=== PATIENT | female | born 1950 | race African-American/Black ===

== ENCOUNTER 2017-04-06 16:18 | Emergency (ER) | payer OTHER ==
[~2017-04-06] VITALS: Ht 154.9 cm; Wt 94.3 kg
[~2017-04-06 16:18] MED LIST: AGGRENOX; ALBU18; AMIT25TA9; AMITRIPTYLINE; AMLO10TA2 PO; ASPIRIN; ATEN-60; CLOP75TA41; DOXY; GABA-494; HYDR-2595; LISI-285; SIMV-13; SIMV20TA90; pravastatin PO
[2017-04-06 16:42] VITALS: BP 124/79
[2017-04-06] MEDS ORDERED: KETOROLAC TROMETH 60MG/2ML VIAL IM ONE (18:15)
[2017-04-06 18:35] LABS: Basophils # (auto) 0 uL; CONDITION AutoValidated; Eosinophils # (auto) 0.2 uL; Eosinophils % (auto) 2.6 % (0.0-7.0); Hematocrit 36.8 % (36.0-46.0); Hemoglobin 12.2 g/dL (12.2-16.2); Lymphocytes # (auto) 1.3 uL; Mean Corpuscular Hemoglobin 31.5 pg (28.0-32.0); Mean Corpuscular Hgb Conc. 33.1 g/dL (32.0-36.0); Mean Corpuscular Volume 95.2 fL (80.0-100.0); Mean Platelet Volume 8.9 fL (7.4-10.4); Monocytes # (auto) 0.5 uL; Neutrophils # (auto) 5.6 uL; Neutrophils % (auto) 74.4 % (37.0-80.0); Platelet Count (auto) 284 10^3/uL (140-450); Red Cell Distribution Width 13.9 % (11.6-16.0); White Blood Cell 7.5 10^3/uL (4.4-10.8)
[2017-04-06 18:42] LABS: INR 0.95 (0.9-1.15); Prothrombin Time 10.4 sec (9.37-12.3)
[2017-04-06 18:48] LABS: Albumin 3.6 g/dL (3.4-5.0); Anion Gap 11 (5-15); BUN/Creatinine Ratio 18.2; Blood Urea Nitrogen 29 mg/dL (7-18); Calcium 8.8 mg/dL (8.5-10.1); Carbon Dioxide 19 mmol/L (21-32); Chloride 116 mmol/L (98-107); GFR African American 42 mL/min; GFR Non-African American 35 mL/min; Glucose 96 mg/dL (74-106); Magnesium 1.9 mg/dL (1.6-2.6); Potassium 3.7 mmol/L (3.5-5.1); Sodium 146 mmol/L (136-145)
[2017-04-06 18:50] LABS: Alkaline Phosphatase 68 U/L (45-117); Aspartate Aminotransferase 18 U/L (15-37); Bilirubin, Total 0.3 mg/dL (0.2-1.0); Total Protein 7.1 g/dL (6.4-8.2)
== END 2017-04-06 19:11 | disposition home or self-care (01) ==
LOC: EDBD 16:18 → ER 16:18
DX: S16.1XXA Strain of muscle, fascia and tendon at neck level, initial encounter (principal); S70.01XA Contusion of right hip, initial encounter; J45.909 Unspecified asthma, uncomplicated; E78.5 Hyperlipidemia, unspecified; I10 Essential (primary) hypertension; Z86.73 Personal history of transient ischemic attack (TIA), and cerebral infarction without residual deficits; Z90.49 Acquired absence of other specified parts of digestive tract; Z79.899 Other long term (current) drug therapy; Z88.6 Allergy status to analgesic agent; Z87.891 Personal history of nicotine dependence; W19.XXXA Unspecified fall, initial encounter; Y93.89 Activity, other specified; Y99.8 Other external cause status; Y92.89 Other specified places as the place of occurrence of the external cause
CPT/HCPCS: 36415; 70450; 71010; 72125; 73502; 80053; 83735; 84484; 85025; 85610; 93005; 96372; 99285; J1885

== ENCOUNTER 2017-05-11 12:05 | Observation (INO) | payer OTHER ==
[~2017-05-11] VITALS: Ht 157.5 cm; Wt 88.0 kg
[2017-05-11] MEDS ORDERED: SODIUM CHLORIDE 0.9% 1,000 ML IVB ONE (12:22)
[2017-05-11] MEDS ORDERED: ALUM & MAG HYDROX-SIMETH LIQ(MAALOX) 30 ML PO ONE (12:30)
[2017-05-11] MEDS ORDERED: DONNATAL 5ml ORAL Elix (BELLADONNA ALK-PHENOBARB) PO ONE (12:30)
[2017-05-11] MEDS ORDERED: ONDANSETRON HCL 4 MG/2 ML VIAL IV ONE (12:30)
[2017-05-11] MEDS ORDERED: LIDOCAINE VISCOUS 2% 15ML UD PO ONE (12:30)
[2017-05-11] MEDS ORDERED: PANTOPRAZOLE SODIUM 40 MG/10 ML VIAL IV ONE (12:30)
[2017-05-11] MEDS ORDERED: MORPHINE SULFATE 4 MG/ML SYRG IV ONE (12:30)
[2017-05-11 13:26] LABS: Basophils # (auto) 0 uL; Basophils % (auto) 0.3 % (0.0-2.0); CONDITION Y; Eosinophils # (auto) 0.2 uL; Eosinophils % (auto) 3.9 % (0.0-7.0); Hematocrit 38.3 % (36.0-46.0); Hemoglobin 12.9 g/dL (12.2-16.2); Lymphocytes % (auto) 17.2 % (10.0-50.0); Mean Corpuscular Hemoglobin 32.2 pg (28.0-32.0); Mean Corpuscular Hgb Conc. 33.8 g/dL (32.0-36.0); Mean Corpuscular Volume 95.2 fL (80.0-100.0); Monocytes # (auto) 0.4 uL; Monocytes % (auto) 7.5 % (0.0-12.0); Neutrophils % (auto) 71.1 % (37.0-80.0); Platelet Count (auto) 287 10^3/uL (140-450); Red Cell Distribution Width 14.2 % (11.6-16.0); White Blood Cell 5.7 10^3/uL (4.4-10.8)
[2017-05-11 13:43] LABS: INR 1.1 (0.9-1.15); Partial Thromboplastin Time 28.6 sec (22.64-33.71)
[2017-05-11 13:46] LABS: Albumin 3.6 g/dL (3.4-5.0); Amylase 53 U/L (25-115); Anion Gap 8 (5-15); Aspartate Aminotransferase 25 U/L (15-37); BUN/Creatinine Ratio 11.7; Blood Urea Nitrogen 12 mg/dL (7-18); Calcium 8.8 mg/dL (8.5-10.1); Carbon Dioxide 23 mmol/L (21-32); Chloride 110 mmol/L (98-107); GFR African American 69 mL/min; GFR Non-African American 57 mL/min; Glucose 87 mg/dL (74-106); Magnesium 1.8 mg/dL (1.6-2.6); Sodium 141 mmol/L (136-145)
[2017-05-11 13:51] LABS: Alkaline Phosphatase 63 U/L (45-117); Bilirubin, Total 0.4 mg/dL (0.2-1.0); Total Protein 7.3 g/dL (6.4-8.2)
[2017-05-11 14:03] VITALS: BP 137/85
[2017-05-11] MEDS ORDERED: MORPHINE SULFATE 4 MG/ML SYRG IM ONE (14:45)
[2017-05-11] MEDS ORDERED: ONDANSETRON HCL 4 MG/2 ML VIAL IM ONE (14:45)
== END 2017-05-11 14:25 | disposition home or self-care (01) | DRG 392 ==
LOC: EDBD 12:05 → MED 12:13 → OVERFLOW 12:30
PROVIDERS: ADMIT Family Medicine; ATTEND Family Medicine
DX: R11.2 Nausea with vomiting, unspecified (principal); K52.9 Noninfective gastroenteritis and colitis, unspecified; F41.9 Anxiety disorder, unspecified; J45.909 Unspecified asthma, uncomplicated; F32.9 Major depressive disorder, single episode, unspecified; E78.00 Pure hypercholesterolemia, unspecified; I10 Essential (primary) hypertension; Z86.73 Personal history of transient ischemic attack (TIA), and cerebral infarction without residual deficits; E78.5 Hyperlipidemia, unspecified
CPT/HCPCS: 36415; 71020; 74176; 80053; 82150; 83605; 83690; 83735; 84484; 85025; 85610; 85730; 87040; 96372; 99285; C9113; G0378; J2270; J2405; 93005

== ENCOUNTER 2019-07-22 19:55 | Inpatient (IN) | payer OTHER ==
[~2019-07-22] VITALS: Ht 157.5 cm; Wt 90.5 kg
[~2019-07-22 19:55] MED LIST changes: +AMLO10TA13 PO; -AMLO10TA2 PO; -GABA-494; +GABA100C9
[2019-07-22 20:55] LABS: Basophils # (auto) 0.1 uL; Basophils % (auto) 0.9 % (0.0-2.0); Eosinophils # (auto) 0.2 uL; Eosinophils % (auto) 3.2 % (0.0-7.0); Hematocrit 41.9 % (36.0-46.0); Hemoglobin 14.2 g/dL (12.2-16.2); Lymphocytes # (auto) 1.7 uL; Lymphocytes % (auto) 24.4 % (10.0-50.0); Mean Corpuscular Hemoglobin 31.4 pg (28.0-32.0); Mean Corpuscular Hgb Conc. 33.9 g/dL (32.0-36.0); Mean Corpuscular Volume 92.7 fL (80.0-100.0); Monocytes # (auto) 0.6 uL; Monocytes % (auto) 8.8 % (0.0-12.0); Neutrophils # (auto) 4.4 uL; Neutrophils % (auto) 62.7 % (37.0-80.0); Platelet Count (auto) 267 10^3/uL (140-450); Red Blood Cells 4.52 10^6/uL (4.0-5.20); Red Cell Distribution Width 13.9 % (11.8-14.3); White Blood Cell 7.1 10^3/uL (4.4-10.8)
[2019-07-22] MEDS ORDERED: MORPHINE SULFATE 4 MG/ML SYR/VIAL IV ONE (21:00)
[2019-07-22] MEDS ORDERED: ONDANSETRON HCL 4 MG/2 ML VIAL IV ONE (21:00)
[2019-07-22 21:10] LABS: INR 0.98 (0.9-1.15); Partial Thromboplastin Time 28.8 sec (23.64-32.05)
[2019-07-22 21:14] LABS: Albumin 4.1 g/dL (3.4-5.0); Anion Gap 8 (5-15); Blood Urea Nitrogen 28 mg/dL (7-18); Calcium 9.3 mg/dL (8.5-10.1); Carbon Dioxide 25 mmol/L (21-32); Chloride 108 mmol/L (98-107); Potassium 3.7 mmol/L (3.5-5.1); Sodium 141 mmol/L (136-145)
[2019-07-22 21:19] LABS: Alanine Aminotransferase 25 U/L (13-56); Alkaline Phosphatase 103 U/L (45-117); Aspartate Aminotransferase 39 U/L (15-37); BUN/Creatinine Ratio 14.1; Bilirubin, Total 0.6 mg/dL (0.2-1.0); GFR African American 32 mL/min; GFR Non-African American 26 mL/min; Glucose 70 mg/dL (74-106); Total Protein 8.2 g/dL (6.4-8.2)
[2019-07-23] MEDS ORDERED: NITROGLYCERIN 0.4 MG SL TAB SL PRN (00:30)
[2019-07-23] MEDS ORDERED: ACETAMINOPHEN 325 MG TAB PO PRN (00:30)
[2019-07-23] MEDS ORDERED: TEMAZEPAM 15 MG CAP PO PRN (00:30)
[2019-07-23] MEDS ORDERED: MORPHINE SULF INJ 2 MG/ML SYRINGE 1ML IV PRN (00:30)
[2019-07-23 02:50] VITALS: BP 111/68
--- NOTE | 2019-07-23 02:50 | NUR ---
Telemetry admit from ER ISMAELMAGGIE admitted to Telemetry unit; no SBAR received. Patient oriented by MADELINE MAST, primary RN, to unit, room, bed, and unit policies regarding patient care and visiting hours. Patient now on continuous telemetry monitoring, tele box #[id number] and telemetry reading on arrival to unit is SR 62. Patient placed on bedside oxygen at lpm, weighed by bedscale and encouraged to call if she needs something. All questions and concerns addressed, patient verbalized understanding. Pt experiencing chest pain with deep breathing across chest; unwilling to breathe deeply for assessment. Coarse rub noted with exhalations bilat in upper and mid lobes ant. Bed locked in low position. HOB in semi-Mazariegos's position. Call light attached to [facility] bed rail and placed by pt's L hand.
--- NOTE | 2019-07-23 02:51 | NUR ---
Med Rec Patient cannot recall what medications she takes at home. Patient verbalized "I will have my sister bring in my medication list tomorrow"
--- NOTE | 2019-07-23 03:10 | NUR ---
This RN called ER to get report; "Red", RN reported re. pt's condition and activity in ER.
[2019-07-23] MEDS: ONDANSETRON HCL 4 MG/2 ML VIAL IV PRN ×2 (03:46→11:53)
--- NOTE | 2019-07-23 03:56 | NUR ---
Pt had stated the morphine did not relieve her pain in the ER, but she is now sleeping having received Morphine 2mg and ondansetron 4mg as pt stated the pain medicine gave her "the dry heaves."
[2019-07-23 05:59] VITALS: BP 111/68
[2019-07-23] MEDS ORDERED: INFLUENZA QUAD 2019-2020 0.5ml SYRG IM ONE (06:00)
[2019-07-23] MEDS ORDERED: PNEUMOCOCCAL VACC POLYS 25 MCG/0.5 ML VIAL IM ONE (06:00)
--- NOTE | 2019-07-23 08:00 | NUR ---
Opening Shift Note Assumed care of patient, awake and alert X4. No S/S of distress/SOB or pain. Instructed on POC and to call for assist PRN, will continue to monitor for changes Q1hr and PRN.
[2019-07-23 09:00] VITALS: BP 106/61
--- NOTE | 2019-07-23 09:00 | NUR ---
[place] ERNST AT BEDSIDE. INFORMED OF PATIENT STATUS INCLUDING INTERMITTENT CHEST PAIN. RECEIVED NEW ORDERS. WILL FOLLOW THROUGH.
[2019-07-23] MEDS: amLODIPine BESYLATE 5 MG TAB PO SCH (10:00)
[2019-07-23] MEDS: GABAPENTIN 100 MG CAP PO SCH ×2 (10:04→22:01)
[2019-07-23] MEDS: CLOPIDOGREL BISULFATE 75 MG TAB PO SCH (10:04)
[2019-07-23] MEDS: PANTOPRAZOLE 40 MG TAB PO SCH (10:05)
[2019-07-23] MEDS: ASPirin 81 mg TAB PO SCH (10:05)
[2019-07-23] MEDS ORDERED: SODIUM CHLORIDE 0.9% 1,000 ML IV ONE (10:15)
[2019-07-23] MEDS: SODIUM CHLORIDE 0.9% 1,000 ML IV SCH ×2 (10:42→19:00)
--- NOTE | 2019-07-23 11:30 | NUR ---
Austin FIELDS AT BEDSIDE. UPDATED ON PATIENT STATUS. RECIEVED NEW ORDERS. WILL FOLLOW THROUGH.
[2019-07-23 13:00] VITALS: BP 102/65
[2019-07-23 13:15] LABS: Protein, Urine 56.9 mg/dL (0.0-11.9)
[2019-07-23] MEDS ORDERED: OMEP20TA PO (13:34)
[2019-07-23] MEDS ORDERED: HYDR25TA4 PO (13:34)
[2019-07-23] MEDS ORDERED: CLO01T PO (13:34)
[2019-07-23] MEDS ORDERED: LISI40TA PO (13:34)
[2019-07-23] MEDS ORDERED: METO-158 PO (13:34)
[2019-07-23] MEDS ORDERED: GABA300C10 PO (13:34)
[2019-07-23 13:54] LABS: Basophils # (auto) 0 uL; Basophils % (auto) 0.3 % (0.0-2.0); Eosinophils # (auto) 0.2 uL; Eosinophils % (auto) 3.5 % (0.0-7.0); Hemoglobin 12.5 g/dL (12.2-16.2); Lymphocytes # (auto) 1.6 uL; Lymphocytes % (auto) 24.9 % (10.0-50.0); Mean Corpuscular Hemoglobin 31.4 pg (28.0-32.0); Mean Corpuscular Hgb Conc. 33.8 g/dL (32.0-36.0); Mean Corpuscular Volume 92.8 fL (80.0-100.0); Monocytes # (auto) 0.5 uL; Monocytes % (auto) 7.6 % (0.0-12.0); Neutrophils # (auto) 4.1 uL; Neutrophils % (auto) 63.7 % (37.0-80.0); Platelet Count (auto) 239 10^3/uL (140-450); Red Blood Cells 3.99 10^6/uL (4.0-5.20); Red Cell Distribution Width 13.8 % (11.8-14.3); White Blood Cell 6.4 10^3/uL (4.4-10.8)
[2019-07-23 14:23] LABS: BUN/Creatinine Ratio 13.5; Calcium 8.8 mg/dL (8.5-10.1); Potassium 3.7 mmol/L (3.5-5.1)
--- NOTE | 2019-07-23 14:30 | NUR ---
UNABLE TO OBTAIN IV ACCESS AFTER 2 ATTEMPTS.
--- NOTE | 2019-07-23 16:00 | NUR ---
SPOKE TO ANNA IN RADIOLOGY. STATED VQ SCAN WOULD NOT BE DONE UNTIL TOMORROW.
--- NOTE | 2019-07-23 16:10 | NUR ---
IV insertion IV access obtained, via clean sterile technique by inserting 22 gauge catheter at RFA after 1 attempt(s). IV secured properly. No trauma to site. Patient tolerated well.
[2019-07-23 17:00] VITALS: BP 95/52
--- NOTE | 2019-07-23 17:30 | NUR ---
AUSCULTATED LUNG SOUNDS. NO CRACKLES NOTED AT THIS TIME.
--- NOTE | 2019-07-23 19:00 | NUR ---
ENDORSED CARE TO ESAU CORREA. UPDATED ON POC. PATIENT RESTING WITH NO S/S OF DISTRESS NOTED AT THIS TIME.
--- NOTE | 2019-07-23 19:30 | NUR ---
Opening Shift Note Assumed care of patient, sleeping soundly, supine. No S/S of distress/SOB or pain. This RN will continue to monitor for changes Q1hr and PRN. Bed in low position, locked. HOB in Mazariegos's position. Call light at pt's side on L.
[2019-07-23 22:00] VITALS: BP 97/64
[2019-07-23] MEDS: ATORVASTATIN 20 MG TAB PO SCH (22:04)
[2019-07-23 23:51] LABS: Urine Amorphous Crystal FEW /hpf (None Seen); Urine Bacteria FEW /hpf (None Seen); Urine Blood Negative /uL (Negative); Urine Hyaline Cast MANY /lpf (0 - 2); Urine Mucus FEW (None Seen); Urine WBC 4 /hpf (0 - 5)
[2019-07-24 05:19] VITALS: BP 114/46
[2019-07-24] MEDS: SODIUM CHLORIDE 0.9% 1,000 ML IV SCH ×2 (05:19→15:00)
[2019-07-24 06:14] LABS: Basophils # (auto) 0.1 uL; Eosinophils # (auto) 0.3 uL; Eosinophils % (auto) 3.5 % (0.0-7.0); Hematocrit 36.3 % (36.0-46.0); Hemoglobin 12.4 g/dL (12.2-16.2); Lymphocytes # (auto) 1.5 uL; Lymphocytes % (auto) 18.9 % (10.0-50.0); Mean Corpuscular Hemoglobin 31.6 pg (28.0-32.0); Mean Corpuscular Hgb Conc. 34.1 g/dL (32.0-36.0); Mean Corpuscular Volume 92.8 fL (80.0-100.0); Monocytes # (auto) 0.4 uL; Monocytes % (auto) 5.3 % (0.0-12.0); Neutrophils # (auto) 5.6 uL; Neutrophils % (auto) 71.3 % (37.0-80.0); Nucleated Red Blood Cells % 0.1 %; Red Blood Cells 3.92 10^6/uL (4.0-5.20); Red Cell Distribution Width 13.6 % (11.8-14.3); White Blood Cell 7.9 10^3/uL (4.4-10.8)
[2019-07-24 06:19] LABS: Platelet Count (auto) 190 10^3/uL (140-450)
[2019-07-24 08:05] LABS: Albumin 2.9 g/dL (3.4-5.0); BUN/Creatinine Ratio 20.8; Magnesium 1.8 mg/dL (1.6-2.6); Potassium 4.5 mmol/L (3.5-5.1)
[2019-07-24 08:08] LABS: Bilirubin, Total 0.3 mg/dL (0.2-1.0); Phosphorus 2.8 mg/dL (2.5-4.90); Total Protein 6.2 g/dL (6.4-8.2)
[2019-07-24 09:00] VITALS: BP 141/58
[2019-07-24] MEDS: PANTOPRAZOLE 40 MG TAB PO SCH (09:45)
[2019-07-24] MEDS: GABAPENTIN 100 MG CAP PO SCH ×2 (09:45→22:28)
[2019-07-24] MEDS: CLOPIDOGREL BISULFATE 75 MG TAB PO SCH (09:46)
[2019-07-24] MEDS: amLODIPine BESYLATE 5 MG TAB PO SCH ×2 (09:46→15:57)
[2019-07-24] MEDS: ASPirin 81 mg TAB PO SCH ×2 (09:46→15:31)
--- NOTE | 2019-07-24 11:00 | NUR ---
PATIENT TRANSPORTED DOWN STAIRS TO WHIZZER OPERATOR IN BED FOR SCHEDULED PROCEDURE. NO S/S OF DISTRESS AT THIS TIME. INFORMED ESAU BERNARD THAT CONSENTS STILL NEED TO BE SIGNED BY MMontse. VERBALIZED UNDERSTANDING.
[2019-07-24] MEDS ORDERED: ERGOCALCIFEROL 50,000 UNIT(1.25MG) CAP PO SCH (11:45)
[2019-07-24] MEDS ORDERED: fentaNYL CITRATE 100 MCG/2 ML VL ONE (11:51)
[2019-07-24] MEDS ORDERED: ANGIOMAX 250 MG VIAL IV ONE (11:51)
[2019-07-24] MEDS ORDERED: LIDOCAINE 2%HCL (LOCAL ANESTH.) INJ 20ML MDV ONE ×2 (11:52→12:32)
[2019-07-24] MEDS ORDERED: SODIUM CHL 0.9% 0 ML ONE (11:52)
[2019-07-24] MEDS ORDERED: MIDAZOLAM HCL 1MG/1ML-2 ML VIAL ONE (11:52)
[2019-07-24] MEDS ORDERED: IODIXANOL 320MG/ML 100ML BTL IV ONE (11:52)
[2019-07-24] MEDS ORDERED: VERAPAMIL 2.5MG/ML INJ 2ML VIAL IV ONE (11:58)
[2019-07-24] MEDS ORDERED: diphenhdrAMINE HCL 50 MG/1 ML VL ONE (12:32)
[2019-07-24 13:00] VITALS: BP 169/71
--- NOTE | 2019-07-24 13:45 | NUR ---
RECEIVED REPORT FROM ESAU GONZALEZ. PATIENT HAS DRESSING TO L WRIST AND R GROIN. ASSESSED BOTH SITES. NO HEMATOMAS NOTED AT BOTH SITES. PULSES TO BILATERAL UPPER AND LOWER EXTREMITIES +2. WILL CONTINUE TO MONITOR.
[2019-07-24 14:10] VITALS: BP 155/92
--- NOTE | 2019-07-24 14:10 | NUR ---
PATIENT COMPLAINING OF PAIN 10 AT SITE AND BP OF 155/92. ROMANA NARANJOQQRAMON. AWAITING CALL BACK.
[2019-07-24] MEDS ORDERED: SODIUM CHLORIDE 0.9% 1,000 ML IV ONE (14:30)
--- NOTE | 2019-07-24 15:00 | NUR ---
RECIEVED CALL BACK FROM [place] PADRON. RECEIVED NEW ORDERS. WILL FOLLOW THROUGH.
[2019-07-24] MEDS ORDERED: MORPHINE SULF INJ 2 MG/ML SYRINGE 1ML IV ONE (15:15)
[2019-07-24] MEDS ORDERED: HYDROcodone-ACET 5/325MG TAB PO PRN (15:15)
[2019-07-24] MEDS: ALLOPURINOL 100 MG TAB PO SCH (15:31)
--- NOTE | 2019-07-24 16:40 | NUR ---
PER RN CARLOS PATIENT ABLE TO SIT UP AT THIS TIME. PATIENT NOW RESTING IN BED SEMI FOWLERS. NO S/S OF HEMATOMA NOTED AT BOTH R GROIN AND L WRIST SITES. WILL CONTINUE TO MONITOR.
[2019-07-24 17:00] VITALS: BP 124/96
--- NOTE | 2019-07-24 18:00 | NUR ---
LUNGS AUSCULTATED POSTERIORLY. CLEAR AND DIMINISHED UPON ASSESSMENT.
--- NOTE | 2019-07-24 18:00 | NUR ---
PROVIDED INCENTIVE SPIROMETER. INSTRUCTED PATIENT ON USE. PATIENT RETURNED DEMONSTRATION AND VERBALIZED UNDERSTANDING.
--- NOTE | 2019-07-24 19:00 | NUR ---
ENDORSED CARE TO ESAU TORO. UPDATED ON PATIENT STATUS INCLUDING RECENT PROCEDURES AND VITALS. PATIENT IN NO S/S OF DISTRESS.
--- NOTE | 2019-07-24 19:35 | NUR ---
Opening Shift Note Assumed care of patient, awake and alert oriented x4. No S/S of distress/SOB or pain noted. Bed is in lowest locked position with bed rails up x2 and call light is within reach of the patient. Instructed on POC and to call for assist PRN. Dressing to right groin and left wrist are dry and intact and soft to touch.
[2019-07-24] MEDS: ATORVASTATIN 20 MG TAB PO SCH (22:28)
[2019-07-25] MEDS: SODIUM CHLORIDE 0.9% 1,000 ML IV SCH (01:04)
[2019-07-25 03:06] VITALS: BP 124/57
[2019-07-25 05:55] VITALS: BP 131/71
[2019-07-25 07:08] LABS: Basophils # (auto) 0 uL; Basophils % (auto) 0.2 % (0.0-2.0); Eosinophils # (auto) 0.2 uL; Eosinophils % (auto) 2.5 % (0.0-7.0); Hematocrit 33.6 % (36.0-46.0); Hemoglobin 11.1 g/dL (12.2-16.2); Lymphocytes # (auto) 1.3 uL; Lymphocytes % (auto) 19.4 % (10.0-50.0); Mean Corpuscular Hemoglobin 31.7 pg (28.0-32.0); Mean Corpuscular Hgb Conc. 33.1 g/dL (32.0-36.0); Monocytes # (auto) 0.6 uL; Neutrophils # (auto) 4.6 uL; Neutrophils % (auto) 68.9 % (37.0-80.0); Nucleated Red Blood Cells % 0.1 %; Platelet Count (auto) 200 10^3/uL (140-450); Red Cell Distribution Width 13.6 % (11.8-14.3); White Blood Cell 6.7 10^3/uL (4.4-10.8)
[2019-07-25 07:28] LABS: BUN/Creatinine Ratio 27.8; Calcium 8.2 mg/dL (8.5-10.1); Potassium 4.9 mmol/L (3.5-5.1)
[2019-07-25 08:45] VITALS: BP 130/80
[2019-07-25] MEDS: amLODIPine BESYLATE 5 MG TAB PO SCH ×2 (10:00→10:15)
[2019-07-25] MEDS: PANTOPRAZOLE 40 MG TAB PO SCH ×2 (10:00→10:14)
[2019-07-25] MEDS: ASPirin 81 mg TAB PO SCH ×2 (10:00→10:15)
[2019-07-25] MEDS: ALLOPURINOL 100 MG TAB PO SCH ×2 (10:00→10:14)
[2019-07-25] MEDS: GABAPENTIN 100 MG CAP PO SCH ×2 (10:00→10:15)
[2019-07-25] MEDS: CLOPIDOGREL BISULFATE 75 MG TAB PO SCH ×2 (10:00→10:14)
--- NOTE | 2019-07-25 10:11 | NUR ---
assessment Patient has no post discharge needs at this time. Addendum: 07/25/19 at 1513 by Katia PELAYO Amended: Links added.
--- NOTE | 2019-07-25 11:46 | NUR ---
PATIENT STATES SHE HAS TO LEAVE SHE SOMETHING VERY IMPORTANT TO DO TODAY. I INFORMED HER THAT SHE WOULD BE LEAVING THE HOSPITAL AMA. SHE VERBALIZED UNDERSTANDING AND STATES SHE CAN'T WAIT ALL DAY FOR THE DOCTOR.
--- NOTE | 2019-07-25 13:03 | NUR ---
AMA Note MAGGIE GUEVARA states they want to leave the hospital Against Medical Advice (AMA). Patient encouraged to stay for further treatment/stabilization. PAGED DR PADRON TO NOTIFY HIM of patient's wishes. Patient advised of the risks and benefits of leaving AMA. Patient verbalized understanding. Patient encouraged to return to the ER if symptoms do not improve or worsen.
== END 2019-07-25 12:48 | disposition left against medical advice (07) | DRG 286 ==
LOC: EDBD 19:55 → EDSEX 19:55 → ER 19:57 → TELE 19:58 → TELE-CENTR 07-23 02:41
PROVIDERS: ADMIT Nurse Practitioner; ATTEND Internal Medicine
PROC: 4A023N7 Measurement of Cardiac Sampling and Pressure, Left Heart, Percutaneous Approach (ICD-10-PCS; principal; 2019-07-24)
PROC: B211YZZ Fluoroscopy of Multiple Coronary Arteries using Other Contrast (ICD-10-PCS; 2019-07-24)
PROC: B41FYZZ Fluoroscopy of Right Lower Extremity Arteries using Other Contrast (ICD-10-PCS; 2019-07-24)
DX: R07.9 Chest pain, unspecified (principal); N17.0 Acute kidney failure with tubular necrosis; I25.110 Atherosclerotic heart disease of native coronary artery with unstable angina pectoris; I13.0 Hypertensive heart and chronic kidney disease with heart failure and stage 1 through stage 4 chronic kidney disease, or unspecified chronic kidney disease; E78.5 Hyperlipidemia, unspecified; I50.9 Heart failure, unspecified; J45.909 Unspecified asthma, uncomplicated; N18.9 Chronic kidney disease, unspecified; Z96.651 Presence of right artificial knee joint; E86.1 Hypovolemia; E86.0 Dehydration; E55.9 Vitamin D deficiency, unspecified; E79.0 Hyperuricemia without signs of inflammatory arthritis and tophaceous disease; G62.9 Polyneuropathy, unspecified; F41.9 Anxiety disorder, unspecified; F17.210 Nicotine dependence, cigarettes, uncomplicated; Z53.21 Procedure and treatment not carried out due to patient leaving prior to being seen by health care provider; E66.9 Obesity, unspecified; E78.00 Pure hypercholesterolemia, unspecified; F32.9 Major depressive disorder, single episode, unspecified; Z86.73 Personal history of transient ischemic attack (TIA), and cerebral infarction without residual deficits; I25.2 Old myocardial infarction; Z88.5 Allergy status to narcotic agent; Z79.899 Other long term (current) drug therapy; Z90.49 Acquired absence of other specified parts of digestive tract; Z82.49 Family history of ischemic heart disease and other diseases of the circulatory system; Z83.3 Family history of diabetes mellitus
CPT/HCPCS: 36415; 71045; 76775; 78582; 80048; 80053; 81001; 82306; 82570; 83735; 83880; 83970; 84100; 84156; 84300; 84484; 84550; 85025; 85379; 85610; 85730; 93306; 93458; 96361; 96374; 96375; 99152; G0378; J2250; J2405; Q9967

== ENCOUNTER 2020-01-30 21:33 | Emergency (ER) | payer OTHER ==
[~2020-01-30] VITALS: Ht 160 cm; Wt 87.1 kg
[~2020-01-30 21:33] MED LIST changes: -AGGRENOX; -ALBU18; -AMIT25TA9; -AMITRIPTYLINE; -AMLO10TA13 PO; -ASPIRIN; -ATEN-60; +CLO01T PO; -DOXY; -GABA100C9; +GABA300C10 PO; -HYDR-2595; +HYDR25TA4 PO; -LISI-285; +LISI40TA11 PO; +METO-158 PO; +OMEP20TA PO; -SIMV-13; -pravastatin PO
[2020-01-30 22:57] LABS: Urine WBC None Seen /hpf (0 - 5)
[2020-01-30 23:20] LABS: Urine Bacteria NONE SEEN /hpf (None Seen); Urine Blood Negative /uL (Negative)
[2020-01-30] MEDS ORDERED: SODIUM CHLORIDE 0.9% 1,000 ML IVB ONE (23:43)
[2020-01-30] MEDS ORDERED: ONDANSETRON HCL 4 MG/2 ML VIAL IV ONE (23:45)
[2020-01-30] MEDS ORDERED: MORPHINE SULFATE 4 MG/ML SYR/VIAL IV ONE (23:45)
[2020-01-31] MEDS ORDERED: IOHEXOL 300 MG/ML 100ML BOTTLE IJ ONE (00:01)
[2020-01-31 00:50] LABS: Alcohol, Urine < 3.0 mg/dL (0-5); Amphetamine Screen, Urine POSITIVE (NEGATIVE); Barbiturate Scree,Urine NEGATIVE (NEGATIVE); Benzodiazephine Screen, Urine NEGATIVE (NEGATIVE); Cannabinoid Screen, Urine NEGATIVE (NEGATIVE); Cocaine Screen, Urine NEGATIVE (NEGATIVE); Phencyclidine Screen, Urine NEGATIVE (NEGATIVE)
[2020-01-31 00:58] LABS: Opiate Scree,Urine NEGATIVE (NEGATIVE)
[2020-01-31 02:15] LABS: Basophils # (auto) 0 10 ^3/uL (0-0.2); Basophils % (auto) 0.5 % (0.0-2.0); Eosinophils # (auto) 0.1 10 ^3/uL (0-0.8); Hematocrit 35.5 % (36.0-46.0); Hemoglobin 11.7 g/dL (12.2-16.2); Lymphocytes # (auto) 1.4 10 ^3/uL (0.4-5.4); Lymphocytes % (auto) 16.7 % (10.0-50.0); Mean Corpuscular Hemoglobin 31.4 pg (28.0-32.0); Mean Corpuscular Volume 95.3 fL (80.0-100.0); Monocytes # (auto) 0.7 10 ^3/uL (0-1.3); Monocytes % (auto) 7.9 % (0.0-12.0); Neutrophils # (auto) 6.1 10 ^3/uL (1.6-8.6); Neutrophils % (auto) 73.9 % (37.0-80.0); Platelet Count (auto) 186 10^3/uL (140-450); Red Blood Cells 3.72 10^6/uL (4.0-5.20); Red Cell Distribution Width 13.7 % (11.8-14.3); White Blood Cell 8.3 10^3/uL (4.4-10.8)
[2020-01-31 02:29] LABS: Alanine Aminotransferase 12 U/L (13-56); Amylase 43 U/L (25-115); Anion Gap 7 (5-15); Blood Urea Nitrogen 12 mg/dL (7-18); Calcium 8.6 mg/dL (8.5-10.1); Carbon Dioxide 25 mmol/L (21-32); Chloride 112 mmol/L (98-107); Glucose 100 mg/dL (74-106); Lipase 64 U/L (73-393); Magnesium 1.9 mg/dL (1.6-2.6); Potassium 3.4 mmol/L (3.5-5.1); Sodium 144 mmol/L (136-145)
[2020-01-31 02:30] LABS: INR 1.03 (0.9-1.15); Partial Thromboplastin Time 29.2 sec (23.64-32.05)
[2020-01-31 02:34] LABS: Alkaline Phosphatase 86 U/L (45-117); Aspartate Aminotransferase 15 U/L (15-37); Bilirubin, Total 0.3 mg/dL (0.2-1.0); GFR African American 92 mL/min; GFR Non-African American 76 mL/min; Total Protein 6.5 g/dL (6.4-8.2)
[2020-01-31 05:30] VITALS: BP 148/68
== END 2020-01-31 05:30 | disposition home or self-care (01) ==
LOC: EDBD 21:33 → EDSEX 21:33 → ER 21:55
DX: J18.9 Pneumonia, unspecified organism (principal); R10.11 Right upper quadrant pain; F19.10 Other psychoactive substance abuse, uncomplicated; F17.210 Nicotine dependence, cigarettes, uncomplicated; R11.2 Nausea with vomiting, unspecified; I11.0 Hypertensive heart disease with heart failure; I50.9 Heart failure, unspecified; E78.5 Hyperlipidemia, unspecified; I25.2 Old myocardial infarction; J45.909 Unspecified asthma, uncomplicated; Z90.49 Acquired absence of other specified parts of digestive tract; Z86.73 Personal history of transient ischemic attack (TIA), and cerebral infarction without residual deficits
CPT/HCPCS: 36415; 74176; 76705; 80053; 80307; 81001; 82150; 83605; 83690; 83735; 84484; 85025; 85610; 85730; 96361; 96374; 96375; 99285; J7030; J2405

== ENCOUNTER 2021-03-17 14:14 | Inpatient (IN) | payer OTHER, MEDICAID ==
[~2021-03-17] VITALS: Ht 160 cm; Wt 83.2 kg
[~2021-03-17 14:14] MED LIST changes: -CLOP75TA41; +CLOP75TA70; +SIMV20TA2; -SIMV20TA90
[2021-03-17 20:47] LABS: Basophils # (auto) 0 10 ^3/uL (0-0.2); Basophils % (auto) 0.7 % (0.0-2.0); Eosinophils # (auto) 0.2 10 ^3/uL (0-0.8); Eosinophils % (auto) 2.7 % (0.0-7.0); Hematocrit 37.2 % (36.0-46.0); Hemoglobin 12.6 g/dL (12.2-16.2); Lymphocytes % (auto) 31.6 % (10.0-50.0); Mean Corpuscular Hemoglobin 32.5 pg (28.0-32.0); Mean Corpuscular Hgb Conc. 33.9 g/dL (32.0-36.0); Mean Corpuscular Volume 95.7 fL (80.0-100.0); Monocytes # (auto) 0.5 10 ^3/uL (0-1.3); Monocytes % (auto) 8.1 % (0.0-12.0); Neutrophils # (auto) 3.5 10 ^3/uL (1.6-8.6); Neutrophils % (auto) 56.9 % (37.0-80.0); Nucleated Red Blood Cells % 0.1 %; Platelet Count (auto) 255 10^3/uL (140-450); Red Blood Cells 3.88 10^6/uL (4.0-5.20); Red Cell Distribution Width 13.9 % (11.8-14.3); White Blood Cell 6.2 10^3/uL (4.4-10.8)
[2021-03-17 21:04] LABS: INR 0.99 (0.9-1.15)
[2021-03-17 21:16] LABS: Albumin 3.4 g/dL (3.4-5.0); Calcium 9.1 mg/dL (8.5-10.1); Potassium 5.1 mmol/L (3.5-5.1)
[2021-03-17 21:19] LABS: BUN/Creatinine Ratio 13.7; Bilirubin, Total 0.3 mg/dL (0.2-1.0); Total Protein 7.6 g/dL (6.4-8.2)
[2021-03-18] MEDS ORDERED: SODIUM CHLORIDE 0.9% 1,000 ML IV ONE (06:00)
[2021-03-18] MEDS ORDERED: ONDANSETRON HCL 4 MG/2 ML VIAL IV PRN (06:00)
[2021-03-18] MEDS: SODIUM CHLORIDE 0.9% 1,000 ML IV SCH ×2 (07:27→09:03)
[2021-03-18] MEDS ORDERED: AMLO-489 PO (08:59)
[2021-03-18] MEDS: PANTOPRAZOLE 40 MG/10 ML VIAL INJ IV SCH (09:02)
[2021-03-18 09:16] VITALS: BP 144/77
[2021-03-18] MEDS: MORPHINE SULFATE 4 MG/ML SYR/VIAL IV PRN ×2 (11:48→22:17)
[2021-03-18] MEDS ORDERED: cefTRIAXone 1GM/50ML D5W 50 ML IV ONE (12:00)
[2021-03-18 12:38] VITALS: BP 140/70
[2021-03-18] MEDS ORDERED: ALBUTEROL SULF 2.5 MG/0.5ML(0.5%) NEB SOLN NEB PRN (12:45)
[2021-03-18] MEDS: metroNIDAZOLE 500MG/100ML 100 ML IV SCH ×2 (14:03→22:16)
[2021-03-18 16:56] VITALS: BP 137/83
[2021-03-18 18:25] LABS: Urine Bacteria FEW /hpf (None Seen); Urine Blood Negative /uL (Negative); Urine Budding Yeast MODERATE /hpf (None Seen); Urine Specific Gravity 1.009 (1.001-1.035); Urine WBC 1 /hpf (0 - 5)
[2021-03-18] MEDS: D5W/SOD CHLO 0.9% 1,000 ML IV SCH (18:45)
[2021-03-18 21:01] VITALS: BP 137/83
[2021-03-18 22:00] VITALS: BP 154/94
[2021-03-19 00:38] LABS: BUN/Creatinine Ratio 16.5; Calcium 8.4 mg/dL (8.5-10.1); Potassium 3.7 mmol/L (3.5-5.1)
[2021-03-19] MEDS: D5W/SOD CHLO 0.9% 1,000 ML IV SCH ×3 (02:15→17:22)
[2021-03-19 05:00] VITALS: BP 153/94
[2021-03-19 05:23] LABS: Basophils # (auto) 0 10 ^3/uL (0-0.2); Basophils % (auto) 0.7 % (0.0-2.0); Eosinophils # (auto) 0.1 10 ^3/uL (0-0.8); Eosinophils % (auto) 2.3 % (0.0-7.0); Hematocrit 38.9 % (36.0-46.0); Hemoglobin 13.2 g/dL (12.2-16.2); Lymphocytes # (auto) 1.3 10 ^3/uL (0.4-5.4); Lymphocytes % (auto) 24.2 % (10.0-50.0); Mean Corpuscular Hemoglobin 31.8 pg (28.0-32.0); Mean Corpuscular Hgb Conc. 33.9 g/dL (32.0-36.0); Mean Corpuscular Volume 93.9 fL (80.0-100.0); Monocytes # (auto) 0.5 10 ^3/uL (0-1.3); Monocytes % (auto) 9.7 % (0.0-12.0); Neutrophils # (auto) 3.4 10 ^3/uL (1.6-8.6); Neutrophils % (auto) 63.1 % (37.0-80.0); Platelet Count (auto) 255 10^3/uL (140-450); Red Blood Cells 4.15 10^6/uL (4.0-5.20); Red Cell Distribution Width 13.3 % (11.8-14.3); White Blood Cell 5.4 10^3/uL (4.4-10.8)
[2021-03-19] MEDS: metroNIDAZOLE 500MG/100ML 100 ML IV SCH ×3 (05:53→21:21)
[2021-03-19 06:02] LABS: Albumin 3.1 g/dL (3.4-5.0); Calcium 8.6 mg/dL (8.5-10.1); Magnesium 1.8 mg/dL (1.6-2.6)
[2021-03-19 06:05] LABS: Bilirubin, Total 0.5 mg/dL (0.2-1.0); Total Protein 7.2 g/dL (6.4-8.2)
[2021-03-19] MEDS ORDERED: BUPIVACAINE 0.25% INJ 50ML VIAL ONE (06:56)
[2021-03-19] MEDS ORDERED: LIDOCAINE W/ EPINEPHRINE 1% 20ML VIAL ONE (06:56)
[2021-03-19] MEDS ORDERED: ceFAZolin 1GM/50ML 100 ML IV ONE (07:14)
[2021-03-19] MEDS ORDERED: FAMOTIDINE (10MG/ML) 2ML VL IV ONE (07:16)
[2021-03-19] MEDS ORDERED: fentaNYL CITRATE 5 ML ONE (07:18)
[2021-03-19] MEDS ORDERED: fentaNYL CITRATE 100 MCG/2 ML VL ONE (07:18)
[2021-03-19] MEDS ORDERED: MIDAZOLAM HCL 1MG/1ML-2 ML VIAL ONE (07:18)
[2021-03-19] MEDS ORDERED: HYDROmorphone HCL 2 MG/ML VL ONE (07:18)
[2021-03-19] MEDS ORDERED: ONDANSETRON HCL 4 MG/2 ML VIAL ONE (07:19)
[2021-03-19] MEDS ORDERED: ePHEDrine SULFATE 50 MG/ML AMP ONE (07:19)
[2021-03-19] MEDS ORDERED: DexAMETHasone SOD PHOS 10MG/1ML VIAL INJ ONE (07:19)
[2021-03-19] MEDS ORDERED: LIDOCAINE 2% (LOCAL ANESTH.) PF 5ml SDV ONE (07:19)
[2021-03-19] MEDS ORDERED: PROPOFOL 10 MG/ML 20 ML IV ONE (07:19)
[2021-03-19] MEDS ORDERED: GLYCOPYRROLATE 0.2 MG/ML 1ML VIAL ONE ×2 (07:19→07:51)
[2021-03-19] MEDS ORDERED: NEOSTIGMINE 1 MG/ML INJ (10mg/10ML VIAL) ONE (07:51)
[2021-03-19] MEDS ORDERED: ePHEDrine SULFATE 50 MG/ML AMP IV PRN (09:00)
[2021-03-19] MEDS ORDERED: MIDAZOLAM HCL 1MG/1ML-2 ML VIAL IV PRN (09:00)
[2021-03-19] MEDS ORDERED: fentaNYL CITRATE 100 MCG/2 ML VL IV PRN (09:00)
[2021-03-19] MEDS ORDERED: ONDANSETRON HCL 4 MG/2 ML VIAL IV PRN (09:00)
[2021-03-19] MEDS ORDERED: LABETALOL HCL 5 MG/ML 4ML SYRINGE IV ONE (09:04)
[2021-03-19] MEDS: LABETALOL HCL 5 MG/ML 4ML SYRINGE IV PRN ×2 (09:05→09:20)
[2021-03-19 09:50] VITALS: BP 180/102
[2021-03-19] MEDS: PANTOPRAZOLE 40 MG/10 ML VIAL INJ IV SCH (10:21)
[2021-03-19] MEDS: MORPHINE SULFATE 4 MG/ML SYR/VIAL IV PRN ×3 (10:21→20:21)
[2021-03-19] MEDS: cefTRIAXone 1GM/50ML D5W 50 ML IV SCH (10:21)
[2021-03-19] MEDS: amLODIPine BESYLATE 5 MG TAB PO SCH (10:55)
[2021-03-19] MEDS: LISINOPRIL 20 MG TAB PO SCH (10:55)
[2021-03-19] MEDS: METOPROLOL TARTRATE 50 MG TAB PO SCH ×2 (10:56→21:21)
[2021-03-19 13:00] VITALS: BP 153/93
[2021-03-19] MEDS: GABAPENTIN 300 MG CAP PO SCH ×2 (14:04→21:21)
[2021-03-19 16:58] VITALS: BP 166/96
[2021-03-19] MEDS ORDERED: NICOTINE 14 MG/24HR TOPICAL PATCH TD ONE (17:30)
[2021-03-19 22:32] VITALS: BP 148/92
[2021-03-20] MEDS: MORPHINE SULFATE 4 MG/ML SYR/VIAL IV PRN (01:23)
[2021-03-20] MEDS: D5W/SOD CHLO 0.9% 1,000 ML IV SCH ×2 (04:08→10:13)
[2021-03-20 05:15] VITALS: BP 146/76
[2021-03-20] MEDS: GABAPENTIN 300 MG CAP PO SCH (06:35)
[2021-03-20] MEDS: metroNIDAZOLE 500MG/100ML 100 ML IV SCH (06:35)
[2021-03-20 08:15] VITALS: BP 166/108
[2021-03-20 09:00] VITALS: BP 166/108
[2021-03-20] MEDS: cefTRIAXone 1GM/50ML D5W 50 ML IV SCH (09:08)
[2021-03-20] MEDS ORDERED: NICOTINE 14 MG/24HR TOPICAL PATCH TD SCH (10:00)
[2021-03-20] MEDS: PANTOPRAZOLE 40 MG/10 ML VIAL INJ IV SCH (10:11)
[2021-03-20] MEDS: LISINOPRIL 20 MG TAB PO SCH (10:12)
[2021-03-20] MEDS: METOPROLOL TARTRATE 50 MG TAB PO SCH (10:12)
[2021-03-20] MEDS: amLODIPine BESYLATE 5 MG TAB PO SCH (10:12)
[2021-03-20 13:03] VITALS: BP 140/94
[2021-03-20 13:21] VITALS: BP 154/92
== END 2021-03-20 13:45 | disposition home or self-care (01) | DRG 350 ==
LOC: ER 14:14 → EDSTATUS 14:54 → UNDOADMIN 15:39 → EAST 15:39 → EDSTATUS 18:29 → TELE 03-18 05:53 → CENTRAL 03-18 08:34
PROVIDERS: ADMIT Nurse Practitioner; ATTEND Internal Medicine
PROC: 0YQ50ZZ Repair Right Inguinal Region, Open Approach (ICD-10-PCS; principal; 2021-03-19 07:25)
DX: K40.30 Unilateral inguinal hernia, with obstruction, without gangrene, not specified as recurrent (principal); N17.0 Acute kidney failure with tubular necrosis; R64 Cachexia; J98.11 Atelectasis; J96.10 Chronic respiratory failure, unspecified whether with hypoxia or hypercapnia; I69.354 Hemiplegia and hemiparesis following cerebral infarction affecting left non-dominant side; Z20.822 Contact with and (suspected) exposure to COVID-19; B19.20 Unspecified viral hepatitis C without hepatic coma; E66.9 Obesity, unspecified; E78.5 Hyperlipidemia, unspecified; F17.210 Nicotine dependence, cigarettes, uncomplicated; F32.9 Major depressive disorder, single episode, unspecified; F41.9 Anxiety disorder, unspecified; I11.0 Hypertensive heart disease with heart failure; I50.9 Heart failure, unspecified; I73.9 Peripheral vascular disease, unspecified; Z96.651 Presence of right artificial knee joint; J44.9 Chronic obstructive pulmonary disease, unspecified; K59.00 Constipation, unspecified; Z79.02 Long term (current) use of antithrombotics/antiplatelets; Z79.899 Other long term (current) drug therapy; Z90.49 Acquired absence of other specified parts of digestive tract; Z88.6 Allergy status to analgesic agent; Z88.8 Allergy status to other drugs, medicaments and biological substances; Z88.5 Allergy status to narcotic agent; I25.2 Old myocardial infarction; Z68.29 Body mass index [BMI] 29.0-29.9, adult
CPT/HCPCS: 36415; 71045; 74176; 80048; 80053; 81001; 83605; 83735; 85025; 85610; 86850; 86900; 86901; 87081; 87426; 88302; 93005; 96365; 96375; C9113; G0378; J0690; J0696; J1100; J2001; J2250; J2405; J2704; J3490; J7042

== ENCOUNTER 2021-04-16 11:39 | Inpatient (IN) | payer OTHER, MEDICAID ==
[~2021-04-16] VITALS: Ht 157.5 cm; Wt 87.8 kg
[~2021-04-16 11:39] MED LIST changes: +AMLO-489 PO
[2021-04-16] MEDS ORDERED: ACETAMINOPHEN 325 MG TAB PO ONE (12:15)
[2021-04-16 12:27] LABS: Basophils # (auto) 0 10 ^3/uL (0-0.2); Basophils % (auto) 0.3 % (0.0-2.0); Eosinophils # (auto) 0 10 ^3/uL (0-0.8); Eosinophils % (auto) 0.2 % (0.0-7.0); Hematocrit 31.8 % (36.0-46.0); Hemoglobin 10.7 g/dL (12.2-16.2); Lymphocytes % (auto) 8.8 % (10.0-50.0); Mean Corpuscular Hemoglobin 31.4 pg (28.0-32.0); Mean Corpuscular Hgb Conc. 33.8 g/dL (32.0-36.0); Mean Corpuscular Volume 92.9 fL (80.0-100.0); Monocytes # (auto) 1.5 10 ^3/uL (0-1.3); Neutrophils # (auto) 9.3 10 ^3/uL (1.6-8.6); Neutrophils % (auto) 77.7 % (37.0-80.0); Red Blood Cells 3.42 10^6/uL (4.0-5.20); Red Cell Distribution Width 13.7 % (11.8-14.3); White Blood Cell 11.9 10^3/uL (4.4-10.8)
[2021-04-16 12:38] LABS: Albumin 2.7 g/dL (3.4-5.0); Anion Gap 13 (5-15); Blood Urea Nitrogen 64 mg/dL (7-18); Calcium 8.2 mg/dL (8.5-10.1); Carbon Dioxide 19 mmol/L (21-32); Chloride 105 mmol/L (98-107); Glucose 119 mg/dL (74-106); Potassium 4.6 mmol/L (3.5-5.1); Sodium 137 mmol/L (136-145)
[2021-04-16 12:40] LABS: Lactic Acid w/Reflex 2.4 mmol/L (0.4-2.0)
[2021-04-16 12:44] LABS: Alanine Aminotransferase 15 U/L (13-56); Alkaline Phosphatase 67 U/L (45-117); Aspartate Aminotransferase 17 U/L (15-37); BUN/Creatinine Ratio 8.5; Bilirubin, Total 0.3 mg/dL (0.2-1.0); GFR African American 7 mL/min; GFR Non-African American 6 mL/min
[2021-04-16 14:42] LABS: INR 1.2 (0.9-1.15); Partial Thromboplastin Time 29.5 sec (23.0-31.2)
[2021-04-16] MEDS ORDERED: MORPHINE SULF INJ 2 MG/ML SYRINGE 1ML IV PRN (19:15)
[2021-04-16] MEDS ORDERED: LORazepam 2MG/ML-1ML VIAL IV PRN (19:15)
[2021-04-16] MEDS ORDERED: LORazepam 0.5 MG TAB PO PRN (19:15)
[2021-04-16] MEDS ORDERED: ONDANSETRON HCL 4 MG/2 ML VIAL IV PRN (19:15)
[2021-04-16] MEDS ORDERED: PIPERACILLIN-TAZO 4.5GM 100 ML IV ONE (19:15)
[2021-04-16] MEDS ORDERED: LACTATED RINGER'S 1,000 ML IV ONE (19:15)
[2021-04-16] MEDS ORDERED: HYDROcodone-ACET 5/325MG TAB PO PRN (19:15)
[2021-04-16] MEDS ORDERED: NITROGLYCERIN 0.4 MG SL TAB SL PRN (19:15)
[2021-04-16] MEDS ORDERED: DOCUSATE SOD 100 MG CAP PO PRN (19:15)
[2021-04-16] MEDS ORDERED: ALUM & MAG HYDROX-SIMETH LIQ(MAALOX) 30 ML PO PRN (19:15)
[2021-04-16] MEDS ORDERED: MORPHINE SULFATE 4 MG/ML SYR/VIAL IV PRN (19:15)
[2021-04-16 19:20] LABS: Urine Bacteria FEW /hpf (None Seen); Urine Blood 2+ /uL (Negative); Urine Budding Yeast OCCASIONAL /hpf (None Seen); Urine Specific Gravity 1.009 (1.001-1.035); Urine WBC 325 /hpf (0 - 5)
[2021-04-16] MEDS ORDERED: hydrALAZINE HCL 20 MG/ML VL IV PRN (19:30)
[2021-04-16 20:07] LABS: Alcohol, Urine < 3.0 mg/dL (0-10); Amphetamine Screen, Urine POSITIVE (NEGATIVE); Barbiturate Scree,Urine NEGATIVE (NEGATIVE); Benzodiazephine Screen, Urine NEGATIVE (NEGATIVE); Cannabinoid Screen, Urine NEGATIVE (NEGATIVE); Cocaine Screen, Urine NEGATIVE (NEGATIVE); Opiate Scree,Urine NEGATIVE (NEGATIVE); Phencyclidine Screen, Urine NEGATIVE (NEGATIVE)
[2021-04-16 20:30] LABS: INR 1.18 (0.9-1.15); Partial Thromboplastin Time 27.1 sec (23.0-31.2)
[2021-04-16 20:33] LABS: Cholesterol 127 mg/dL (< 200); HDL Cholesterol 14 mg/dL (40-59); LDL Cholesterol 83 mg/dL (< 100); Triglycerides 181 mg/dL (< 150)
[2021-04-16] MEDS: MORPHINE SULF INJ 2 MG/ML SYRINGE 1ML IV PRN (20:40)
[2021-04-16] MEDS: GABAPENTIN 300 MG CAP PO SCH (21:10)
[2021-04-16] MEDS: ATORVASTATIN 20 MG TAB PO SCH (21:10)
[2021-04-16 22:00] VITALS: BP 155/72
[2021-04-16] MEDS ORDERED: FAMOTIDINE (10MG/ML) 2ML VL IV SCH (22:00)
[2021-04-16] MEDS ORDERED: PIPERACILLIN-TAZO 4.5GM 100 ML IV SCH (22:00)
[2021-04-16] MEDS: ACETAMINOPHEN 325 MG TAB PO PRN (22:01)
[2021-04-16 22:45] VITALS: BP 155/72
[2021-04-17] MEDS: MORPHINE SULF INJ 2 MG/ML SYRINGE 1ML IV PRN (00:38)
[2021-04-17] MEDS: SODIUM CHLORIDE 0.9% 1,000 ML IV SCH ×2 (03:06→12:55)
[2021-04-17 05:15] VITALS: BP 126/65
[2021-04-17] MEDS: PIPERACILLIN-TAZOB 2.25GM 50 ML IV SCH ×3 (05:49→22:27)
[2021-04-17 07:20] LABS: Basophils # (auto) 0 10 ^3/uL (0-0.2); Basophils % (auto) 0.2 % (0.0-2.0); Eosinophils # (auto) 0.1 10 ^3/uL (0-0.8); Eosinophils % (auto) 0.7 % (0.0-7.0); Hematocrit 33.8 % (36.0-46.0); Hemoglobin 11.3 g/dL (12.2-16.2); Lymphocytes # (auto) 1.1 10 ^3/uL (0.4-5.4); Lymphocytes % (auto) 7.8 % (10.0-50.0); Mean Corpuscular Hemoglobin 31.6 pg (28.0-32.0); Mean Corpuscular Hgb Conc. 33.5 g/dL (32.0-36.0); Mean Corpuscular Volume 94.3 fL (80.0-100.0); Monocytes # (auto) 1.5 10 ^3/uL (0-1.3); Monocytes % (auto) 11.1 % (0.0-12.0); Neutrophils # (auto) 10.9 10 ^3/uL (1.6-8.6); Neutrophils % (auto) 80.2 % (37.0-80.0); Nucleated Red Blood Cells % 0.1 %; Red Blood Cells 3.58 10^6/uL (4.0-5.20); Red Cell Distribution Width 13.9 % (11.8-14.3); White Blood Cell 13.6 10^3/uL (4.4-10.8)
[2021-04-17 07:35] LABS: INR 1.23 (0.9-1.15)
[2021-04-17 08:27] LABS: Thyroid Stimulating Hormone 1.45 uIU/mL (0.358-3.74)
[2021-04-17 09:00] VITALS: BP 125/84
[2021-04-17] MEDS ORDERED: HCTZ 25 MG TAB PO SCH (10:00)
[2021-04-17 10:42] LABS: Chloride 114 mmol/L (98-107); Potassium 4.4 mmol/L (3.5-5.1); Sodium 146 mmol/L (136-145)
[2021-04-17 10:53] LABS: Alanine Aminotransferase 12 U/L (13-56); Albumin 2.3 g/dL (3.4-5.0); Alkaline Phosphatase 61 U/L (45-117); Anion Gap 13 (5-15); Aspartate Aminotransferase 20 U/L (15-37); Bilirubin, Total 0.4 mg/dL (0.2-1.0); Blood Urea Nitrogen 48 mg/dL (7-18); Calcium 8.1 mg/dL (8.5-10.1); Carbon Dioxide 19 mmol/L (21-32); GFR African American 14 mL/min; GFR Non-African American 12 mL/min; Glucose 94 mg/dL (74-106); Magnesium 1.6 mg/dL (1.6-2.6); Phosphorus 3.2 mg/dL (2.5-4.90); Total Protein 6.2 g/dL (6.4-8.2)
[2021-04-17 13:00] VITALS: BP 127/82
[2021-04-17] MEDS: METOPROLOL SUCCINATE XL 50 MG TAB PO SCH (14:31)
[2021-04-17] MEDS ORDERED: FLUCONAZOLE 200MG/100ML 100 ML IV ONE (14:45)
[2021-04-17 17:00] VITALS: BP 131/88
[2021-04-17] MEDS: METOCLOPRAMIDE HCL 5MG/ml INJ 2ml VIAL IV SCH (17:38)
[2021-04-17 22:00] VITALS: BP 119/63
[2021-04-17] MEDS ORDERED: FAMOTIDINE (10MG/ML) 2ML VL IV SCH (22:00)
[2021-04-17] MEDS: ATORVASTATIN 20 MG TAB PO SCH (22:27)
[2021-04-17] MEDS: GABAPENTIN 300 MG CAP PO SCH (22:27)
[2021-04-18] MEDS: METOCLOPRAMIDE HCL 5MG/ml INJ 2ml VIAL IV SCH ×3 (00:29→18:00)
[2021-04-18 05:00] VITALS: BP 136/71
[2021-04-18] MEDS: SODIUM CHLORIDE 0.9% 1,000 ML IV SCH ×3 (05:35→22:15)
[2021-04-18] MEDS: PIPERACILLIN-TAZOB 2.25GM 50 ML IV SCH ×3 (06:30→22:01)
[2021-04-18 07:31] LABS: Basophils # (auto) 0.1 10 ^3/uL (0-0.2); Basophils % (auto) 0.7 % (0.0-2.0); Eosinophils # (auto) 0.2 10 ^3/uL (0-0.8); Eosinophils % (auto) 1.9 % (0.0-7.0); Hematocrit 30.3 % (36.0-46.0); Hemoglobin 10.5 g/dL (12.2-16.2); Lymphocytes # (auto) 1.1 10 ^3/uL (0.4-5.4); Lymphocytes % (auto) 12.9 % (10.0-50.0); Mean Corpuscular Hgb Conc. 34.7 g/dL (32.0-36.0); Mean Corpuscular Volume 92.2 fL (80.0-100.0); Neutrophils # (auto) 6.4 10 ^3/uL (1.6-8.6); Neutrophils % (auto) 73.5 % (37.0-80.0); Red Blood Cells 3.28 10^6/uL (4.0-5.20); Red Cell Distribution Width 13.9 % (11.8-14.3); White Blood Cell 8.8 10^3/uL (4.4-10.8)
[2021-04-18 07:51] LABS: Albumin 2.5 g/dL (3.4-5.0); Calcium 8.3 mg/dL (8.5-10.1); Potassium 4.2 mmol/L (3.5-5.1)
[2021-04-18 07:56] LABS: BUN/Creatinine Ratio 12.5; Bilirubin, Total 0.5 mg/dL (0.2-1.0); Total Protein 6.5 g/dL (6.4-8.2)
[2021-04-18 09:00] VITALS: BP 146/85
[2021-04-18] MEDS: METOPROLOL SUCCINATE XL 50 MG TAB PO SCH (09:10)
[2021-04-18] MEDS: FAMOTIDINE (10MG/ML) 2ML VL IV SCH ×2 (09:10→22:01)
[2021-04-18] MEDS ORDERED: FAMOTIDINE (10MG/ML) 2ML VL IV SCH (10:00)
[2021-04-18] MEDS ORDERED: FLUCONAZOLE 200MG/100ML 100 ML IV SCH (10:00)
[2021-04-18] MEDS ORDERED: MICAFUNGIN SODIUM 100 MG in SODIUM CHL 0.9% 100 ML IV ONE (11:00)
[2021-04-18 13:00] VITALS: BP 137/69
[2021-04-18] MEDS: BETHANECHOL CHLORIDE 25 MG TAB PO SCH ×2 (14:00→22:01)
[2021-04-18 17:00] VITALS: BP 154/88
[2021-04-18] MEDS ORDERED: TAMSULOSIN HYDROCHLORIDE 0.4 MG CAP PO SCH (18:00)
[2021-04-18 22:00] VITALS: BP 144/91
[2021-04-18] MEDS ORDERED: METOPROLOL TARTRATE 50 MG TAB PO SCH (22:00)
[2021-04-18] MEDS: ATORVASTATIN 20 MG TAB PO SCH (22:01)
[2021-04-18] MEDS: GABAPENTIN 300 MG CAP PO SCH (22:01)
[2021-04-19 05:00] VITALS: BP 122/63
[2021-04-19] MEDS: MORPHINE SULF INJ 2 MG/ML SYRINGE 1ML IV PRN (06:30)
[2021-04-19] MEDS: METOCLOPRAMIDE HCL 5MG/ml INJ 2ml VIAL IV SCH ×2 (06:30→18:00)
[2021-04-19] MEDS: BETHANECHOL CHLORIDE 25 MG TAB PO SCH ×3 (06:30→22:13)
[2021-04-19] MEDS: PIPERACILLIN-TAZOB 2.25GM 50 ML IV SCH ×3 (06:30→21:55)
[2021-04-19 06:34] LABS: Basophils # (auto) 0 10 ^3/uL (0-0.2); Basophils % (auto) 0.4 % (0.0-2.0); Eosinophils # (auto) 0.1 10 ^3/uL (0-0.8); Eosinophils % (auto) 0.8 % (0.0-7.0); Hematocrit 27.5 % (36.0-46.0); Hemoglobin 9.7 g/dL (12.2-16.2); Lymphocytes # (auto) 1.1 10 ^3/uL (0.4-5.4); Lymphocytes % (auto) 13.4 % (10.0-50.0); Mean Corpuscular Hemoglobin 32.6 pg (28.0-32.0); Mean Corpuscular Hgb Conc. 35.2 g/dL (32.0-36.0); Mean Corpuscular Volume 92.5 fL (80.0-100.0); Monocytes # (auto) 0.8 10 ^3/uL (0-1.3); Monocytes % (auto) 9.1 % (0.0-12.0); Neutrophils # (auto) 6.5 10 ^3/uL (1.6-8.6); Neutrophils % (auto) 76.3 % (37.0-80.0); Red Blood Cells 2.97 10^6/uL (4.0-5.20); Red Cell Distribution Width 13.8 % (11.8-14.3); White Blood Cell 8.5 10^3/uL (4.4-10.8)
[2021-04-19 06:55] LABS: BUN/Creatinine Ratio 9.6; Calcium 7.8 mg/dL (8.5-10.1); Potassium 4.6 mmol/L (3.5-5.1)
[2021-04-19 09:00] VITALS: BP 113/65
[2021-04-19] MEDS: MICAFUNGIN SODIUM 100 MG in SODIUM CHL 0.9% 100 ML IV SCH (11:24)
[2021-04-19] MEDS: FAMOTIDINE (10MG/ML) 2ML VL IV SCH ×2 (11:26→21:55)
[2021-04-19] MEDS: METOPROLOL SUCCINATE XL 50 MG TAB PO SCH (11:27)
[2021-04-19] MEDS: GABAPENTIN 300 MG CAP PO SCH ×2 (11:27→21:56)
[2021-04-19 13:21] VITALS: BP 142/84
[2021-04-19] MEDS: SODIUM CHLORIDE 0.9% 1,000 ML IV SCH (14:02)
[2021-04-19 16:59] VITALS: BP 137/84
[2021-04-19] MEDS: ATORVASTATIN 20 MG TAB PO SCH (21:55)
[2021-04-19 22:00] VITALS: BP 136/75
[2021-04-20 05:00] VITALS: BP 135/79
[2021-04-20] MEDS: SODIUM CHLORIDE 0.9% 1,000 ML IV SCH ×3 (05:13→23:44)
[2021-04-20] MEDS: ACETAMINOPHEN 325 MG TAB PO PRN (05:21)
[2021-04-20] MEDS: PIPERACILLIN-TAZOB 2.25GM 50 ML IV SCH ×3 (06:21→23:45)
[2021-04-20] MEDS: BETHANECHOL CHLORIDE 25 MG TAB PO SCH ×3 (06:21→23:45)
[2021-04-20] MEDS: METOCLOPRAMIDE HCL 5MG/ml INJ 2ml VIAL IV SCH ×2 (06:21→18:16)
[2021-04-20 06:31] LABS: INR 1.14 (0.9-1.15); Partial Thromboplastin Time 27.6 sec (23.0-31.2)
[2021-04-20 06:55] LABS: BUN/Creatinine Ratio 8.6; Calcium 7.6 mg/dL (8.5-10.1)
[2021-04-20 08:44] VITALS: BP 128/61
[2021-04-20] MEDS ORDERED: BUMETANIDE 2.5mg/10ml (0.25 mg/ml) INJ IV ONE (08:45)
[2021-04-20] MEDS: GABAPENTIN 300 MG CAP PO SCH (09:53)
[2021-04-20] MEDS: METOPROLOL SUCCINATE XL 50 MG TAB PO SCH (09:55)
[2021-04-20] MEDS: MICAFUNGIN SODIUM 100 MG in SODIUM CHL 0.9% 100 ML IV SCH (10:00)
[2021-04-20] MEDS: FAMOTIDINE (10MG/ML) 2ML VL IV SCH ×2 (10:00→23:45)
[2021-04-20 13:16] VITALS: BP 113/83
[2021-04-20 17:00] VITALS: BP 147/85
[2021-04-20 22:55] VITALS: BP 141/97
[2021-04-20] MEDS: MORPHINE SULF INJ 2 MG/ML SYRINGE 1ML IV PRN (23:45)
[2021-04-20] MEDS: ATORVASTATIN 20 MG TAB PO SCH (23:45)
[2021-04-21] MEDS: SODIUM CHLORIDE 0.9% 1,000 ML IV SCH (05:33)
[2021-04-21 05:35] VITALS: BP 112/68
[2021-04-21 06:39] LABS: Potassium 4.3 mmol/L (3.5-5.1)
[2021-04-21] MEDS: PIPERACILLIN-TAZOB 2.25GM 50 ML IV SCH ×3 (06:42→22:37)
[2021-04-21] MEDS: METOCLOPRAMIDE HCL 5MG/ml INJ 2ml VIAL IV SCH ×2 (06:42→17:54)
[2021-04-21] MEDS: BETHANECHOL CHLORIDE 25 MG TAB PO SCH ×4 (06:42→22:42)
[2021-04-21 06:45] LABS: BUN/Creatinine Ratio 11.9
[2021-04-21 09:00] VITALS: BP 105/59
[2021-04-21] MEDS: FAMOTIDINE (10MG/ML) 2ML VL IV SCH (10:33)
[2021-04-21] MEDS: METOPROLOL SUCCINATE XL 50 MG TAB PO SCH (10:36)
[2021-04-21] MEDS: MICAFUNGIN SODIUM 100 MG in SODIUM CHL 0.9% 100 ML IV SCH (10:39)
[2021-04-21 13:00] VITALS: BP 113/57
[2021-04-21] MEDS ORDERED: AMOX500T86 PO (15:58)
[2021-04-21 17:00] VITALS: BP 154/77
[2021-04-21] MEDS ORDERED: SODIUM CHLORIDE 0.9% 1,000 ML IV ONE (17:00)
[2021-04-21 22:00] VITALS: BP 151/78
[2021-04-21] MEDS ORDERED: GABAPENTIN 300 MG CAP PO SCH (22:00)
[2021-04-21] MEDS: ATORVASTATIN 20 MG TAB PO SCH (22:37)
[2021-04-22] MEDS: MORPHINE SULF INJ 2 MG/ML SYRINGE 1ML IV PRN ×2 (02:04→04:34)
[2021-04-22 04:47] VITALS: BP 106/50
[2021-04-22] MEDS: METOCLOPRAMIDE HCL 5MG/ml INJ 2ml VIAL IV SCH (06:39)
[2021-04-22] MEDS: PIPERACILLIN-TAZOB 2.25GM 50 ML IV SCH ×2 (06:39→14:00)
[2021-04-22] MEDS: BETHANECHOL CHLORIDE 25 MG TAB PO SCH (06:40)
[2021-04-22 09:01] VITALS: BP 134/70
[2021-04-22] MEDS: METOPROLOL SUCCINATE XL 50 MG TAB PO SCH (10:10)
[2021-04-22] MEDS: MICAFUNGIN SODIUM 100 MG in SODIUM CHL 0.9% 100 ML IV SCH (10:11)
[2021-04-22 13:11] VITALS: BP 143/74
[2021-04-22] MEDS ORDERED: SOD CHL 0.45% 1,000 ML IV SCH (18:30)
== END 2021-04-22 18:50 | disposition home health service (06) | DRG 871 ==
LOC: ER 11:39 → TELE-WESTW 19:05
PROVIDERS: ADMIT Hospitalist; ATTEND Hospitalist
PROC: 05HB33Z Insertion of Infusion Device into Right Basilic Vein, Percutaneous Approach (ICD-10-PCS; 2021-04-18)
PROC: B54MZZA Ultrasonography of Right Upper Extremity Veins, Guidance (ICD-10-PCS; 2021-04-18)
PROC: 05HA33Z Insertion of Infusion Device into Left Brachial Vein, Percutaneous Approach (ICD-10-PCS; principal; 2021-04-22)
PROC: B54NZZA Ultrasonography of Left Upper Extremity Veins, Guidance (ICD-10-PCS; 2021-04-22)
DX: A41.9 Sepsis, unspecified organism (principal); N17.0 Acute kidney failure with tubular necrosis; N13.6 Pyonephrosis; I13.2 Hypertensive heart and chronic kidney disease with heart failure and with stage 5 chronic kidney disease, or end stage renal disease; I16.9 Hypertensive crisis, unspecified; N18.5 Chronic kidney disease, stage 5; E78.5 Hyperlipidemia, unspecified; I65.29 Occlusion and stenosis of unspecified carotid artery; K52.9 Noninfective gastroenteritis and colitis, unspecified; K59.00 Constipation, unspecified; Z20.822 Contact with and (suspected) exposure to COVID-19; D64.9 Anemia, unspecified; F17.210 Nicotine dependence, cigarettes, uncomplicated; F32.9 Major depressive disorder, single episode, unspecified; F41.9 Anxiety disorder, unspecified; I25.10 Atherosclerotic heart disease of native coronary artery without angina pectoris; I25.5 Ischemic cardiomyopathy; J44.9 Chronic obstructive pulmonary disease, unspecified; N32.0 Bladder-neck obstruction; I25.2 Old myocardial infarction; Z79.899 Other long term (current) drug therapy; Z86.73 Personal history of transient ischemic attack (TIA), and cerebral infarction without residual deficits; Z90.49 Acquired absence of other specified parts of digestive tract; Z88.5 Allergy status to narcotic agent; Z68.34 Body mass index [BMI] 34.0-34.9, adult; I50.9 Heart failure, unspecified
CPT/HCPCS: 36415; 51702; 71045; 73060; 74176; 74181; 76705; 80048; 80053; 80061; 80307; 81001; 82306; 82728; 83036; 83605; 83615; 83735; 83880; 84100; 84443; 84484; 85025; 85049; 85610; 85652; 85730; 86141; 87040; 87077; 87081; 87086; 87088; 87426; 93005; 93306; 96365; G0378; J1450; J2248; J2543; J3490

== ENCOUNTER 2021-04-23 16:02 | Emergency (ER) | payer OTHER, MEDICAID ==
[~2021-04-23 16:02] MED LIST changes: +AMOX500T86 PO
== END 2021-04-23 16:22 | disposition left against medical advice (07) ==
LOC: ER 16:02
DX: K94.23 Gastrostomy malfunction (principal); Z53.21 Procedure and treatment not carried out due to patient leaving prior to being seen by health care provider

== ENCOUNTER 2021-04-24 12:47 | Emergency (ER) | payer OTHER, MEDICAID ==
[~2021-04-24] VITALS: Ht 170.2 cm; Wt 74.8 kg
[2021-04-24 13:03] VITALS: BP 143/82
== END 2021-04-24 16:11 | disposition left against medical advice (07) ==
LOC: ER 12:47 → EDBD 12:47 → ER 16:11
DX: T82.898A Other specified complication of vascular prosthetic devices, implants and grafts, initial encounter (principal); Z53.21 Procedure and treatment not carried out due to patient leaving prior to being seen by health care provider

== ENCOUNTER 2021-05-17 10:05 | Emergency (ER) | payer OTHER, MEDICAID ==
[~2021-05-17] VITALS: Ht 157.5 cm; Wt 74.4 kg
[2021-05-17 11:43] LABS: Urine Bacteria NONE SEEN /hpf (None Seen); Urine Blood 1+ /uL (Negative); Urine Specific Gravity 1.013 (1.001-1.035); Urine WBC 1099 /hpf (0 - 5); Urine WBC Clumps PRESENT /hpf (None Seen)
[2021-05-17 13:02] VITALS: BP 122/87
== END 2021-05-17 13:03 | disposition home or self-care (01) ==
LOC: ER 10:05
DX: R33.9 Retention of urine, unspecified (principal); N39.0 Urinary tract infection, site not specified; I11.0 Hypertensive heart disease with heart failure; I50.9 Heart failure, unspecified; J44.9 Chronic obstructive pulmonary disease, unspecified; I25.2 Old myocardial infarction; E78.5 Hyperlipidemia, unspecified; F17.210 Nicotine dependence, cigarettes, uncomplicated; Z86.73 Personal history of transient ischemic attack (TIA), and cerebral infarction without residual deficits; Z90.49 Acquired absence of other specified parts of digestive tract; Z79.2 Long term (current) use of antibiotics; Z79.899 Other long term (current) drug therapy; Z88.5 Allergy status to narcotic agent
CPT/HCPCS: 51702; 81001

== ENCOUNTER 2022-05-21 16:00 | Emergency (ER) | payer OTHER, MEDICAID ==
[~2022-05-21] VITALS: Ht 170.2 cm; Wt 77.3 kg
[2022-05-21 16:10] VITALS: BP 183/100
[2022-05-21 18:51] LABS: Basophils # (auto) 0 10 ^3/uL (0-0.2); Basophils % (auto) 0.5 % (0.0-2.0); Eosinophils # (auto) 0 10 ^3/uL (0-0.8); Hematocrit 44.6 % (36.0-46.0); Hemoglobin 14.3 g/dL (12.2-16.2); Lymphocytes % (auto) 20.6 % (10.0-50.0); Mean Corpuscular Hemoglobin 30.3 pg (28.0-32.0); Mean Corpuscular Hgb Conc. 32.1 g/dL (32.0-36.0); Mean Corpuscular Volume 94.3 fL (80.0-100.0); Monocytes # (auto) 0.2 10 ^3/uL (0-1.3); Monocytes % (auto) 5.2 % (0.0-12.0); Neutrophils # (auto) 3.4 10 ^3/uL (1.6-8.6); Neutrophils % (auto) 72.7 % (37.0-80.0); Nucleated Red Blood Cells % 0.1 %; Red Blood Cells 4.73 10^6/uL (4.0-5.20); Red Cell Distribution Width 13.8 % (11.8-14.3); White Blood Cell 4.7 10^3/uL (4.4-10.8)
[2022-05-21 19:09] LABS: Albumin 3.7 g/dL (3.4-5.0); BUN/Creatinine Ratio 14.7; Calcium 9.1 mg/dL (8.5-10.1)
[2022-05-21 19:12] LABS: Bilirubin, Total 0.7 mg/dL (0.2-1.0); Total Protein 7.7 g/dL (6.4-8.2)
== END 2022-05-21 21:17 | disposition left against medical advice (07) ==
LOC: EDBD 16:00 → ER 16:00 → EDUNIT# 16:00 → ER 19:45
DX: K59.00 Constipation, unspecified (principal); Z53.21 Procedure and treatment not carried out due to patient leaving prior to being seen by health care provider
CPT/HCPCS: 36415; 74018; 80053; 85025

== ENCOUNTER 2023-02-04 10:00 | Inpatient (IN) | payer OTHER, MEDICAID ==
[~2023-02-04] VITALS: Ht 160 cm; Wt 75.0 kg
[2023-02-04 10:51] LABS: Basophils # (auto) 0.1 10 ^3/uL (0-0.2); Basophils % (auto) 0.8 % (0.0-2.0); Eosinophils # (auto) 0 10 ^3/uL (0-0.8); Eosinophils % (auto) 0.1 % (0.0-7.0); Hematocrit 42.2 % (36.0-46.0); Hemoglobin 14.5 g/dL (12.2-16.2); Lymphocytes # (auto) 0.7 10 ^3/uL (0.4-5.4); Lymphocytes % (auto) 6.6 % (10.0-50.0); Mean Corpuscular Hemoglobin 31.8 pg (28.0-32.0); Mean Corpuscular Hgb Conc. 34.3 g/dL (32.0-36.0); Mean Corpuscular Volume 92.7 fL (80.0-100.0); Monocytes # (auto) 0.4 10 ^3/uL (0-1.3); Neutrophils % (auto) 88.5 % (37.0-80.0); Red Blood Cells 4.56 10^6/uL (4.0-5.20); White Blood Cell 11.3 10^3/uL (4.4-10.8)
[2023-02-04 10:56] LABS: Alanine Aminotransferase 25 U/L (13-56); Albumin 2.9 g/dL (3.4-5.0); Anion Gap 10 (5-15); Aspartate Aminotransferase 33 U/L (15-37); BUN/Creatinine Ratio 13.3 (10.0-20.0); Blood Urea Nitrogen 17 mg/dL (7-18); Calcium 9.3 mg/dL (8.5-10.1); Carbon Dioxide 21 mmol/L (21-32); Chloride 109 mmol/L (98-107); GFR African American 53 mL/min; GFR Non-African American 44 mL/min; Glucose 120 mg/dL (74-106); Magnesium 2.1 mg/dL (1.6-2.6); Sodium 140 mmol/L (136-145)
[2023-02-04 11:00] LABS: Alkaline Phosphatase 354 U/L (45-117); Bilirubin, Total 1.3 mg/dL (0.2-1.0)
[2023-02-04] MEDS ORDERED: MORPHINE SULFATE INJ 2 MG/ml SYRG IM ONE (11:30)
[2023-02-04 11:40] LABS: INR 1.06 (0.9-1.15); Partial Thromboplastin Time 24.1 sec (24.6-33.4)
[2023-02-04] MEDS ORDERED: LACTATED RINGER'S 1,000 ML IV ONE (11:45)
[2023-02-04] MEDS ORDERED: IOHEXOL 350 MG/ML 100ML IJ ONE (12:02)
[2023-02-04] MEDS ORDERED: ONDANSETRON HCL 4 MG/2 ML VIAL IM ONE (12:45)
[2023-02-04 18:25] LABS: Urine Bacteria NONE SEEN /hpf (None Seen); Urine Blood Negative /uL (Negative); Urine Mucus FEW (None Seen); Urine WBC 2 /hpf (0 - 5)
[2023-02-04] MEDS ORDERED: ACETAMINOPHEN 325 MG TAB PO PRN (23:00)
[2023-02-04] MEDS ORDERED: DOCUSATE SOD 100 MG CAP PO PRN (23:00)
[2023-02-05] MEDS ORDERED: NITROGLYCERIN 0.4 MG SL TAB SL PRN
[2023-02-05] MEDS ORDERED: MORPHINE SULFATE INJ 2 MG/ml SYRG IV PRN
[2023-02-05] MEDS: ONDANSETRON HCL 4 MG/2 ML VIAL IV PRN ×3 (00:59→16:40)
[2023-02-05] MEDS: MORPHINE SULFATE INJ 2 MG/ml SYRG IV PRN ×3 (01:00→16:41)
[2023-02-05] MEDS: SODIUM CHLOR 0.9% PF (SALINE LOCK) 10ML VIAL/SYR IV SCH ×2 (06:07→13:46)
[2023-02-05 06:10] LABS: Basophils # (auto) 0.2 10 ^3/uL (0-0.2); Basophils % (auto) 1.6 % (0.0-2.0); Eosinophils # (auto) 0.1 10 ^3/uL (0-0.8); Eosinophils % (auto) 0.6 % (0.0-7.0); Hematocrit 34.9 % (36.0-46.0); Hemoglobin 11.8 g/dL (12.2-16.2); Lymphocytes % (auto) 9.9 % (10.0-50.0); Mean Corpuscular Hemoglobin 31.7 pg (28.0-32.0); Mean Corpuscular Hgb Conc. 33.9 g/dL (32.0-36.0); Mean Corpuscular Volume 93.7 fL (80.0-100.0); Monocytes % (auto) 10.4 % (0.0-12.0); Neutrophils # (auto) 7.7 10 ^3/uL (1.6-8.6); Neutrophils % (auto) 77.5 % (37.0-80.0); Red Blood Cells 3.72 10^6/uL (4.0-5.20); Red Cell Distribution Width 13.6 % (11.8-14.3)
[2023-02-05 06:28] LABS: Albumin 2.4 g/dL (3.4-5.0); Calcium 8.8 mg/dL (8.5-10.1); Potassium 3.8 mmol/L (3.5-5.1)
[2023-02-05 06:32] LABS: BUN/Creatinine Ratio 16.5 (10.0-20.0); Bilirubin, Total 0.8 mg/dL (0.2-1.0); Total Protein 6.3 g/dL (6.4-8.2)
[2023-02-05] MEDS ORDERED: FAMOTIDINE (10MG/ML) 2ML VL IV SCH (10:00)
[2023-02-05] MEDS ORDERED: ASPirin 81 mg TAB PO SCH (10:00)
[2023-02-05 19:30] VITALS: BP 152/72
[2023-02-05] MEDS ORDERED: ATORVASTATIN 20 MG TAB PO SCH (22:00)
== END 2023-02-05 21:21 | disposition home or self-care (01) | DRG 313 ==
LOC: ER 10:00 → TELE 23:49
PROVIDERS: ADMIT Nurse Practitioner Family; ATTEND Nurse Practitioner Family
DX: R07.89 Other chest pain (principal); N17.9 Acute kidney failure, unspecified; Z20.822 Contact with and (suspected) exposure to COVID-19; J44.9 Chronic obstructive pulmonary disease, unspecified; F17.210 Nicotine dependence, cigarettes, uncomplicated; E78.5 Hyperlipidemia, unspecified; F41.9 Anxiety disorder, unspecified; I11.0 Hypertensive heart disease with heart failure; I50.9 Heart failure, unspecified; D72.829 Elevated white blood cell count, unspecified; E88.09 Other disorders of plasma-protein metabolism, not elsewhere classified; R00.0 Tachycardia, unspecified; R07.81 Pleurodynia; I65.29 Occlusion and stenosis of unspecified carotid artery; Z86.73 Personal history of transient ischemic attack (TIA), and cerebral infarction without residual deficits; Z88.5 Allergy status to narcotic agent; Z82.49 Family history of ischemic heart disease and other diseases of the circulatory system; Z83.3 Family history of diabetes mellitus; Z80.42 Family history of malignant neoplasm of prostate
CPT/HCPCS: 36415; 71045; 71275; 80053; 81001; 83690; 83735; 83880; 84484; 85025; 85379; 85610; 85730; 93005; 93970; 96361; 96372; 96374; 96375; 96376; G0378; J2405; J3490

== ENCOUNTER 2025-03-14 16:37 | Emergency (ER) | payer OTHER ==
[~2025-03-14] VITALS: Ht 157.5 cm; Wt 76.0 kg
[~2025-03-14 16:37] MED LIST changes: -AMLO-489 PO; +AMLO1TAB22 PO; +GABA-1250 PO; -GABA300C10 PO; -LISI40TA11 PO; +LISI40TA16 PO; +SIMV-270; -SIMV20TA2
--- NOTE | 2025-03-14 17:32 | ED.PDOC ---
History of Present Illness HPI Comments This patient is a pleasant but morbidly obese 74-year-old female who arrives the ED today with continued complaints of right leg pain concerns. Pt states that she has been experiencing pain in her right legs for that past 2x weeks with no alleviating factors at this time. Pt states that her pain radiates down her leg into her calf, and notes that the pain interferes with daily activities such as walking and sleeping. Patient states she has been told she has sciatica by her primary care provider, but does not have pain medication that is sufficient to manage her pain concerns. Pt Denies fever, chills, coughing, N/V/D, SOB, Chest pain, ABD Pain, Back pain or other associated symptoms, modifiers, or recent injuries or sick contact that this time. Patient does not display any signs of myopathy or drop foot. Time Seen by MD: 17:27 Primary Care Provider: unknown Reviewed Notes: Nurses Notes, Medications, Allergies Allergies: Coded Allergies: Codeine (Verified Adverse Reaction, Mild, Hives, Itching, 01/30/20) Home Meds Active Scripts Amoxicillin & Pot Clavulanate (Augmentin) 500 Mg Tab, 1 TAB PO BID, #14 TAB Prov:KANDACE YEN MD 04/21/21 Reported Medications Amlodipine Besylate (Amlodipine Besylate) 5 Mg Tab, 5 MG PO DAILY for 30 Days, MG 03/18/21 Lisinopril (Lisinopril) 40 Mg Tab, 40 MG PO DAILY, TAB 07/23/19 Clonidine Hcl (CATAPRES TABLET) 0.1 Mg Tb, 0.1 MG PO PRN, TAB 07/23/19 Hydrochlorothiazide (Hydrochlorothiazide) 25 Mg Tab, 25 MG PO DAILY for 30 Days, MG 07/23/19 Metoprolol Tartrate (Metoprolol Tartrate) 50 Mg Tab, 50 MG PO BID for 30 Days, MG 07/23/19 Omeprazole (Gnp Omeprazole) 20 Mg Tab, 40 MG PO DAILY, TAB 07/23/19 Gabapentin (Gabapentin) 300 Mg Cap, 300 MG PO TID for 30 Days, MG 07/23/19 [[id number] Mg] (CLOPIDOGREL) 75 MG TAB No Conflict Check, MG 06/28/13 Simvastatin (Zocor) 20 Mg Tab, daily 11/13/12 Information Source: Patient Mode of Arrival: Ambulatory Severity: Moderate Timing: Weeks Duration: Since onset Prehospital treatment: None Past Medical History PAST MEDICAL HISTORY: Anxiety, Asthma, CHF, COPD, CVA, Depression, High Lipids, HTN, [place], TIA Past Medical History (Other): Chronic low back pain with sciatica Surgical History: Cholecystectomy, Hernia Repair HOME DELIVERY DRIVER History: No Pertinent HOME DELIVERY DRIVER History Family History Family History: Family hx of DM, Family hx of Cancer, Family hx of HTN Social History Smoker: Cigarettes, Less Than 1 Pack/Day Alcohol: Denies ETOH Use Drugs: Denies Drug Use Lives In: Home Constitutional: denies: chills, diaphoresis, fatigue, fever, malaise, sweats, weakness, others EENTM: denies: blurred vision, double vision, ear bleeding, ear discharge, ear drainage, ear pain, ear ringing, eye pain, eye redness, hearing loss, mouth pain, mouth swelling, nasal discharge, nose bleeding, nose congestion, nose pain, photophobia, tearing, throat pain, throat swelling, voice changes, others Respiratory: denies: cough, hemoptysis, orthopnea, SOB at rest, shortness of breath, SOB with excertion, stridor, wheezing, others Cardiovascular: denies: chest pain, dizzy spells, diaphoresis, Dyspnea on exertion, edema, irregular heart beat, left arm pain, lightheadedness, palpitations, PND, syncope, others Gastrointestinal: denies: abdomen distended, abdominal pain, blood streaked bowels, constipated, diarrhea, dysphagia, difficulty swallowing, hematemesis, melena, nausea, poor appetite, poor fluid intake, rectal bleeding, rectal pain, vomiting, others Genitourinary: denies: abnormal vagina bleeding, burning, dyspareunia, dysuria, flank pain, frequency, hematuria, incontinence, pain, , vagina discharge, urgency, others Neurological: denies: dizziness, fainting, headache, left sided numbness, left sided weakness, numbness, paresthesia, pre-existing deficit, right sided numbness, right sided weakness, seizure, speech problems, tingling, tremors, weakness, others Musculoskeletal: reports: back pain, others (Right leg pain); denies: gout, joint pain, joint swelling, muscle pain, muscle stiffness, neck pain Integumetry: denies: bruises, change in color, change in hair/nails, dryness, laceration, lesions, lumps, rash, wounds, others Allergic/Immunocompromised: denies: Difficulty Healing, Frequent Infections, Hives, Itching, others Hematologic/Lymphatic: denies: anemia, blood clots, easy bleeding, easy bruising, swollen glands, others Endocrine: denies: excessive hunger, excessive sweating, excessive thirst, excessive urination, flushing, intolerance to cold, intolerance to heat, unexplained weight gain, unexplained weight loss, others Psychiatric: denies: anxiety, bipolar disorder, depression, hopeless, panic disorder, schizophrenia, sleepless, suicidal, others All Other Systems: Reviewed and Negative Physical Exam General Appearance: Moderate Distress ([id number] distress due to low back pain radiating down the patient's right leg.), Obese HEENT: Normal ENT Inspection, Pharynx Normal, TMs Normal Neck: Full Range of Motion, Non-Tender, Normal, Normal Inspection Respiratory: Chest Non-Tender, Lungs Clear, No Accessory Muscle Use, No Respiratory Distress, Normal Breath Sounds Cardiovascular: No Edema, No JVD, No Murmur, No Gallop, Normal Peripheral Pulses, Regular Rate/Rhythm Breast Exam: Deferred Gastrointestinal: No Organomegaly, Non Tender, No Pulsatile Mass, Normal Bowel Sounds, Soft Genitalia: Deferred Pelvic: Deferred Rectal: Deferred Extremities: Normal capillary refill, No pedal edema, Other (Patient complains of low back pain extending into the right gluteal region and to the lateral aspect of the right thigh. No signs of trauma. No edema or ecchymosis.) Musculoskeletal : Apperance: Normal Neurologic: Alert, Normal Affect, Normal Mood Cerebellar Function: NOT DONE Reflexes: NOT DONE Skin: Dry, Normal Color, Warm Lymphatic: No Adenopathy Was a procedure done? Was a procedure done?: No Differential Dx Considerations may include: Chronic low back pain with sciatica X-Ray, Labs, Meds, VS Comment This patient states that she has had imaging studies done confirming her some degenerative disc disease of the lumbar spine. Advised patient that I will send her home with a short course of pain medication, but the patient will need to follow up with the primary care provider for long-term management. I believe the patient would benefit from an orthopedic consultation she will ascertain if she is a possible surgical candidate. Time of 1ST Reevaluation: 18:16 Reevaluation 1ST: Improved Consultation: PCP, Other (Orthopedist, pain management) Patient Education/Counseling: Diagnosis, Treatment Family Education/Counseling: Diagnosis, Treatment, No Family Present Departure 1 Departure Time of Disposition: 18:17 Impression: Primary Impression: Chronic low back pain with right-sided sciatica Disposition: HOME / SELF CARE / HOMELESS Condition: Stable Additional Instructions: Advised patient utilize pain medication as needed for symptomatic relief. This patient needs long-term management of her chronic low back pain concerns res ulting in sciatic events. Patient may benefit from an orthopedic consultation and may require a automobile painter to address her worsening back pain and sciatic pain concerns. e-Prescriptions Ibuprofen Micronized (Ibuprofen) 800 Mg Tab 800 MG PO Q8HP PRN, #20 TAB Prov: MARIUSZ VOGT PAC 03/14/25 Hydrocodone-Acetaminophen (Hydrocodone Bitartrate/AC 10-325 mg) 1 Tab Tab 1 TAB PO Q8HP PRN, #15 TAB Prov: MARIUSZ VOGT PAC 03/14/25 Discharged With: Self, Friend Critical Care Note Critical Care Time?: No Stability Stability form required: No Heart Score Heart Score: Heart Score Response (Comments) Value History N/A 0 EKG N/A 0 Age N/A 0 Risk Factors N/A 0 Troponin N/A 0 Total 0 I personally scribed for MARIUSZ VOGT PAC ([email or web address]) on 03/14/25 at 17:32. Electronically submitted by Sesar Staley ([email or web address]). MARIUSZ VOGT PAC March 14, 2025 17:32
[2025-03-14] MEDS ORDERED: HYDR-4798 PO (18:18)
[2025-03-14] MEDS ORDERED: IBUP-1455 PO (18:19)
[2025-03-14 20:07] VITALS: BP 146/76; TEMP 98.7
[2025-03-14 20:08] VITALS: PULSE 69; RESP 16; O2SAT 97
[2025-03-14] MEDS: KETOROLAC TROMETH 60MG/2ML VIAL IM ONE (20:18)
== END 2025-03-14 20:24 | disposition home or self-care (01) ==
LOC: ER 16:37
DX: G89.29 Other chronic pain (principal); M54.41 Lumbago with sciatica, right side; I11.0 Hypertensive heart disease with heart failure; I50.9 Heart failure, unspecified; E66.01 Morbid (severe) obesity due to excess calories; F17.210 Nicotine dependence, cigarettes, uncomplicated; Z79.899 Other long term (current) drug therapy; Z90.49 Acquired absence of other specified parts of digestive tract; Z98.890 Other specified postprocedural states; Z88.5 Allergy status to narcotic agent
CPT/HCPCS: 96372; 99283; J1885